=== PATIENT | female | born 1970 | race American Indian/Alaskan Native ===

== ENCOUNTER 2019-03-26 20:45 | Emergency (ER) | payer SELFPAY ==
--- NOTE | 2019-03-26 21:20 | Event Note ---
ED Screening Note Date of service: 03/26/19 Time: 21:11 ED Screening Note: Repoets CP on/off x 2 months. Seen by receivable clerk. Physicians at [facility]. Reports stress test last week but was not given results. Pain left, mid chest,underneath breast and shoulder. pain is tight, pressure and sharp. no fever or cough. Pain 7/10. Reports h/o PVC. HTN om amlodipine, acid reflux on antacid. took aspirin today Alert and oriented x3. BP 179/100 CV: S1S2 RRR Lungs CTAB Chest pain recurrent HTN This initial assessment/diagnostic orders/clinical plan/treatment(s) is/are subject to change based on patients health status, clinical progression and re- assessment by fellow clinical providers in the ED. Further treatment and workup at subsequent clinical providers discretion. Patient/guardian urged not to elope from the ED as their condition may be serious if not clinically assessed and managed. Initial orders include: CP protocol
[2019-03-26 21:49] LABS: Basophils # (Auto) 0.1 K/mm3 (0.0-0.1); Basophils % (Auto) 1.3 % (0.0-1.8); Eosinophils # (Auto) 0.1 K/mm3 (0.0-0.4); Eosinophils % (Auto) 1.7 % (0.0-4.3); Hematocrit 38.3 % (30.3-42.9); Lymphocytes # (Auto) 2.5 K/mm3 (1.2-5.4); Lymphocytes % (Auto) 46.4 % (13.4-35.0); Mean Corpuscular HGB Conc 34 % (30-34); Mean Corpuscular Volume 97 fl (79-97); Monocytes # (Auto) 0.3 K/mm3 (0.0-0.8); Monocytes % (Auto) 6.2 % (0.0-7.3); Platelet Count 234 K/mm3 (140-440); Red Blood Count 3.95 M/mm3 (3.65-5.03); Red Cell Distribution Width 13.6 % (13.2-15.2)
[2019-03-26 22:04] LABS: Alanine Aminotransferase 7 units/L (7-56); Albumin 3.8 g/dL (3.9-5); BUN/Creatinine Ratio 19; Blood Urea Nitrogen 13 mg/dL (7-17); Calcium 8.8 mg/dL (8.4-10.2); Hemolysis Index 18
--- NOTE | 2019-03-26 22:43 | XRay Report ---
CHEST 2 VIEWS INDICATION: Chest Pain. COMPARISON: None FINDINGS: Support devices: None. Heart: Within normal limits. Lungs/pleura: No acute air space or interstitial disease. No pneumothorax. Additional findings: None. IMPRESSION: 1. No acute findings. Signer Name: David Wylie MD Signed: 03/26/2019 10:39 PM Workstation Name: [id number]
[2019-03-27] MEDS ORDERED: POTASSIUM CHLORIDE ER 20 MEQ TAB PO ONE (01:39)
--- NOTE | 2019-03-27 01:46 | Emergency Department Report ---
ED Chest Pain HPI - General Chief Complaint: Chest Pain Stated Complaint: CHEST PAIN Time Seen by Provider: 03/26/19 21:11 Source: patient Mode of arrival: Ambulatory Limitations: No Limitations - History of Present Illness Initial Comments: Mrs. Finney is a 48-year-old female with history of hypertension, GERD who presents with chest pain for several months. She presumed that her blood pressure had been elevated for quite some time. Due to lack of health insurance, she did not have access to medical care. Now that she has insurance she initiated care with a new PCP recently. Dr. Nereida Tong initiated blood pressure medication amlodipine 5 mg daily. For the past several months, she's had chest pressure at rest. Intermittent sharp chest pain lasting a for only a second. Cardiac stress test performed one week ago. She does not have the official results. She was told that she had PVCs. Aspirin ibuprofen does not change the pain. She has persistent pain, feels like tightness of bronchitis alongside the intermittent brief sharp chest pain. No change with exertion. No family history of heart disease. She personally does not have a history of diabetes mellitus, dyslipidemia. Pain changes in natur and location, bilateral chest, back, left chest. For several years. She has been noncompliant with blood pressure medication due to life circumstances. Cardiac stress test was obtained by [facility] on [facility]. Complaint: chest pain -: Gradual, month(s) (2-3) Onset: during rest Pain Location: substernal, left chest, right chest Severity: mild, moderate Severity scale (0 -10): 7 Quality: tightness, heaviness Consistency: constant Improves With: nothing Worsens With: nothing - Related Data Home Medications Medication Instructions Recorded Confirmed Last Taken amLODIPine 5 mg PO DAILY 03/26/19 03/26/19 Unknown Allergies Allergy/AdvReac Type Severity Reaction Status Date / Time No Known Allergies Allergy Unverified 03/26/19 21:16 Heart Score - HEART Score History: Slightly suspicious EKG: Normal Age: 45-65 Risk factors: 1-2 risk factors Troponin: < normal limit HEART Score: 2 ED Review of Systems ROS: Stated complaint: CHEST PAIN Other details as noted in HPI Comment: All other systems reviewed and negative Constitutional: denies: fever, malaise Respiratory: denies: shortness of breath Cardiovascular: chest pain Gastrointestinal: denies: abdominal pain, nausea, vomiting ED Past Medical Hx - Past Medical History Previous Medical History?: Yes Hx Hypertension: Yes Hx GERD: Yes Hx Asthma: Yes Additional medical history: Cardiac Disease. - Surgical History Past Surgical History?: Yes Additional Surgical History: Hysterectomy, Gastric Sleeve - Social History Smoking Status: Former Smoker Substance Use Type: None - Medications Home Medications: Home Medications Medication Instructions Recorded Confirmed Last Taken Type amLODIPine 5 mg PO DAILY 03/26/19 03/26/19 Unknown History ED Physical Exam - General Limitations: No Limitations General appearance: alert, in no apparent distress - Head Head exam: Present: atraumatic, normocephalic - Eye Eye exam: Present: normal appearance - ENT ENT exam: Present: mucous membranes moist - Neck Neck exam: Present: normal inspection, full ROM - Respiratory Respiratory exam: Present: normal lung sounds bilaterally. Absent: respiratory distress, wheezes, rales, rhonchi - Cardiovascular Cardiovascular Exam: Present: regular rate, normal rhythm, normal heart sounds. Absent: systolic murmur, diastolic murmur, rubs, gallop - GI/Abdominal GI/Abdominal exam: Present: soft, normal bowel sounds. Absent: distended, tenderness, guarding, rebound - Extremities Exam Extremities exam: Present: normal inspection - Neurological Exam Neurological exam: Present: alert, oriented X3 - Psychiatric Psychiatric exam: Present: normal affect, normal mood - Skin Skin exam: Present: warm, dry, intact, normal color. Absent: rash ED Course Vital Signs 03/26/19 20:50 Temperature 98.2 F Pulse Rate 66 Respiratory 14 Rate Blood Pressure 171/100 O2 Sat by Pulse 99 Oximetry ED Medical Decision Making - Lab Data Result diagrams: 03/26/19 21:26 03/26/19 21:26 Laboratory Results - last 72 hr 03/26/19 03/26/19 03/26/19 21:26 21:26 21:26 WBC 5.3 RBC 3.95 Hgb 13.0 Hct 38.3 MCV 97 MCH 33 H MCHC 34 RDW 13.6 Plt Count 234 Lymph % (Auto) 46.4 H [place] % (Auto) 6.2 Eos % (Auto) 1.7 Baso % (Auto) 1.3 Lymph # 2.5 [place] # 0.3 Eos # 0.1 Baso # 0.1 Seg Neutrophils % 44.4 Seg Neutrophils # 2.4 Sodium 137 Potassium 3.0 L Chloride 100.2 Carbon Dioxide 26 Anion Gap 14 BUN 13 Creatinine 0.7 Estimated GFR > 60 BUN/Creatinine Ratio 19 Glucose 89 Calcium 8.8 Total Bilirubin 0.50 AST 14 ALT 7 Alkaline Phosphatase 61 Troponin T < 0.010 Total Protein 7.1 Albumin 3.8 L Albumin/Globulin Ratio 1.2 HCG, Qual Negative - EKG Data 03/27/19 01:38 Normal sinus rhythm rate 70 beats a minute normal axis normal intervals no ST elevation nonspecific T wave pattern low-voltage QRS progression in the anterior leads - Radiology Data Radiology results: report reviewed interpreted by me: Chest radiograph: No acute process according to radiologist's impression CT angiogram chest with IV contrast according to radiology report no evidence of pulmonary embolism or acute parenchymal process according to radiology report, small hiatal hernia was seen - Medical Decision Making 1. Chest pain, atypical for ACS. Recent cardiac stress test performed. Pulmonary embolism, aortic dissection, pericardial effusion, pericarditis, pneumothorax, pneumonia have all been ruled out with workup performed here in emergency department. 2 troponin levels assays ruled out Ms. Finney for myocardial infarction. Chest wall pain is possible with prominent breast tissue. PVCs also possibility for a portion of the chest pain. 2. Hypertensive urgency: I encouraged patient to increase dose of amlodipine from 5 mg to 10 mg. She understands follow with her PCP Dr. Nereida Tong for further BP management. 3. hypokalemia 3.0, Given education and diet instructions Critical care attestation.: If time is entered above; I have spent that time in minutes in the direct care of this critically ill patient, excluding procedure time. ED Disposition Clinical Impression: Chest pain, Hypertensive urgency, Hypokalemia Disposition: - TO HOME OR SELFCARE Is pt being admited?: No Does the pt Need Aspirin: No Condition: Stable Instructions: Chest Pain (ED), Hypokalemia (ED), Hypertension (ED) Additional Instructions: Please increase your amlodipine from 5 mg to 10 mg. Your blood pressure today was 171/100. Please [address] Tong recheck your blood pressure this upcoming week. Referrals: NEREIDA TONG MD [Primary Care Provider] - 3-5 Days
--- NOTE | 2019-03-27 02:42 | Cat Scan Report ---
CTA CHEST WITH IV CONTRAST, 03/27/2019 INDICATION: Chest pain TECHNIQUE: Axial CT images were obtained through the chest after injection of IV contrast. Coronal oblique 2-D reconstruction images were produced. 3 plane MIP reconstruction images were produced at an [employer] workstation. All CTs at this facility utilize dose reduction techniques including automated expos ure control, iterative reconstruction and weight based dosing when appropriate to reduce patient radi ation dose to as low as reasonable achievable. COMPARISON: Chest radiograph, 03/26/2019 FINDINGS: No filling defects are visualized within the central or segmental pulmonary arteries to suggest pulmo nary embolism. The heart is normal in size. Evaluation of the lung parenchyma demonstrates no focal a irspace disease or pleural effusion. Limited imaging of the upper abdomen demonstrates post-surgical change of the stomach. There is a sma ll hiatal hernia. Evaluation of bony structures demonstrates no evidence of acute bony abnormality. E valuation of soft tissue structures demonstrates no evidence of acute soft tissue abnormality. IMPRESSION: 1. No evidence of pulmonary embolism or acute parenchymal process. Signer Name: Liz Mcfadden MD Signed: 03/27/2019 2:37 AM Workstation Name: [id number]
[2019-03-27 04:08] VITALS: BP 156/88
== END 2019-03-27 03:20 | disposition home or self-care (01) ==
LOC: ED 20:45
DX: I16.0 Hypertensive urgency (principal); E87.6 Hypokalemia; I10 Essential (primary) hypertension; K21.9 Gastro-esophageal reflux disease without esophagitis; J45.909 Unspecified asthma, uncomplicated; Z87.891 Personal history of nicotine dependence; Z90.710 Acquired absence of both cervix and uterus
CPT/HCPCS: 36415; 71046; 71275; 80053; 84484; 84703; 85025; 93005; 93010; 99284; Q9967